=== PATIENT | male | born 1995 | race Caucasian/White ===

== ENCOUNTER 2017-06-09 18:14 | Emergency (ER) | payer SELFPAY ==
[~2017-06-09] VITALS: Ht 180.3 cm; Wt 120.7 kg
[2017-06-09 18:14] VITALS: TEMP 37.6; Ht 180.3 cm; Wt 120.7 kg
[2017-06-09] MEDS ORDERED: XYLOCAINE 1%/SOD BICARB 20 ML VIAL INFIL ONE (19:15)
--- NOTE | 2017-06-09 19:39 | DIAGNOSTIC IMAGING REPORT ---
RIGHT HAND 3 VIEWS CLINICAL HISTORY: Right hand injury. FINDINGS: 3 views of the right hand are obtained. No prior studies are available for comparison at the time of dictation. The skeletal structures are well mineralized. No fracture is seen. The joint spaces of the hand are well-maintained. The overlying soft tissues are normal in appearance. IMPRESSION: Unremarkable radiographic assessment of the right hand. Electronically signed by: Mark Zambrano M.D. 06/09/2017 7:37 PM Dictated Date/Time: 06/09/2017 7:36 PM
[2017-06-09 20:08] VITALS: BP 137/73; PULSE 96; O2SAT 97
--- NOTE | 2017-06-10 00:23 | EMERGENCY ROOM VISIT NOTE ---
ED Visit Note First contact with patient: 18:55 Chief Complaint: I cut my right hand on an elevator door. History of Present Illness: Mr. Nichole is a 22-year-old white male who ambulates into the ED accompanied by female friend complaining right hand laceration. Patient reports less than an hour ago he reports an elevator door closed on his right hand and he sustained a laceration in the webspace between the right thumb and index finger. He does report both these fingers were entrapped in the door for short amount of time. Currently he is complaining of a stinging sensation in the area of his laceration. He rates his discomfort 2/10. Pain is nonradiating. His pain worsens with palpation. He has not identified any alleviating factors related to the pain. He reports he is not taking medications for pain prior to arrival at the hospital. He denies any associated symptoms including thumb pain, index finger pain, finger weakness/numbness/tingling. Review of Systems: As noted above in history of present illness. Past Medical History: Patient denies. Current Medications: Patient denies. Allergies to Medications: Sulfa. Social History: Patient is currently employed; he feels safe in his home environment; he denies tobacco use. Tetanus Immunization Status: Patient reports up-to-date. Physical Examination: Vital Signs: Date Time Temp Pulse Resp B/P (MAP) Pulse Ox O2 Delivery O2 Flow Rate FiO2 06/09/17 20:08 96 137/73 97 Room Air 06/09/17 18:14 37.6 117 16 158/119 97 Room Air GENERAL: 22-year-old male in mild distress due to pain, nontoxic-appearing, afebrile and hemodynamically stable. NEUROLOGICAL: Awake, alert and oriented to person, place and time. Answering questions appropriately and following commands. SKIN: Warm, dry and pink. Right Hand: Over the dorsal aspect of the hand patient has a crescent shaped laceration in the webspace between the thumb and index finger. Laceration measures approximately 3.1 cm and is full-thickness. No active bleeding. RIGHT HAND: No gross bony deformity. Mild tenderness over the first and second metacarpals without bony deformity or crepitus. Soft tissue injury as noted above. Full range of motion in flexion and extension of the MCP, interphalangeal joint, PIP and DIP joint. Throughout the fingers the skin was warm and pink and capillary refill is brisk. He was able to distinguish light sensations through all dermatomes. ED Course: Patient is assessed as noted above. Patient's medication list was reviewed. Right Hand X-Rays: Were read by myself and the radiologist showing no acute fractures or dislocations. Wound Repair: Complexity: Basic: Verbal consent was obtained after the risks and benefits were explained. The skin was prepped with betadine and a sterile field set. Wound edges of the wound was anesthetized with 1.9 ml buffered 1% lidocaine. The wound was explored for foreign bodies and none found. Copious irrigation was performed using sterile saline. With direct pressure the bleeding subsided. Debridement was not performed. The wound edges were approximated using 5-0 Ethilon with 5 simple interrupted sutures. Hemostasis and excellent approximation was achieved. Antibacterial ointment and a sterile dressing applied. No complications and the patient tolerated the procedure well. Patient was educated about tonight's findings and instructed on his treatment plan; he verbalizes understanding and agreement with this plan. Clinical Impression: Laceration of the right hand. Disposition: Patient discharged home in stable condition; prior to departure he was reassessed and subjectively reported he was pain-free. Plan: Comfort measures, wound care and signs of infection were discussed with the patient. Patient was encouraged to follow-up with personal physician or return emergency department for signs of infection and/or suture removal in 10-12 days.
== END 2017-06-09 20:10 | disposition home or self-care (01) ==
LOC: C.EDB 18:16 → C.EDD 20:10
DX: S61.411A Laceration without foreign body of right hand, initial encounter (principal); W23.0XXA Caught, crushed, jammed, or pinched between moving objects, initial encounter